=== PATIENT | male | born 1955 | race African-American/Black ===

== ENCOUNTER 2019-07-08 14:54 | Emergency (ER) | payer OTHER ==
[~2019-07-08] VITALS: Ht 188 cm; Wt 120.0 kg
[2019-07-08 15:49] LABS: CLARITY URINE CLEAR (CLEAR); COLOR URINE YELLOW (YELLOW); KETONES URINE NEGATIVE (NEGATIVE); LEUKOCYTE ESTERASE URINE NEGATIVE (NEGATIVE); NITRITE URINE NEGATIVE (NEGATIVE); OCCULT BLOOD URINE TRACE (NEGATIVE); PROTEIN URINE NEGATIVE (NEGATIVE); SPECIFIC GRAVITY URINE 1.015 (1.005-1.030); UROBILINOGEN URINE 0.2 E.U./dL (0.2-1.0)
[2019-07-08 17:10] VITALS: BP 116/74
== END 2019-07-08 17:32 | disposition home or self-care (01) ==
LOC: ER 14:58
DX: R33.9 Retention of urine, unspecified (principal)
CPT/HCPCS: 81003; 99283

== ENCOUNTER 2021-01-25 19:12 | Emergency (ER) | payer SELFPAY ==
[~2021-01-25] VITALS: Ht 185.4 cm; Wt 84.0 kg
[2021-01-25 20:14] VITALS: BP 176/95
[2021-01-25] MEDS ORDERED: MORPHINE SULFATE 4 MG/ML CPJ (NOT FOR IM USE) IV STA (20:50)
[2021-01-25 21:16] LABS: BASOPHILS % 0.4 % (0.0-2.0); EOSINOPHILS % 0.3 % (0.0-5.0); HEMATOCRIT. 49.5 % (42.0-52.0); HEMOGLOBIN. 16.9 g/dL (14.0-18.0); LYMPHOCYTES % 20.4 % (20.0-50.0); MEAN CORPUSCULAR HEMOGLOBIN 30.1 pg (28.0-32.0); MEAN CORPUSCULAR VOLUME 88.1 fL (80.0-94.0); MEAN PLATELET VOLUME 7.1 fl (7.4-10.4); MONOCYTES % 9.4 % (2.0-8.0); NEUTROPHILS % 69.5 % (40.0-76.0); PLATELET 216 x1000/uL (130-400); RED BLOOD CELL COUNT 5.62 mill/uL (4.7-6.1); RED CELL DISTRIBUTION WIDTH 14.1 % (11.6-14.6)
[2021-01-25 21:20] LABS: CHLORIDE 106 mEq/L (98-107); INR 1.1; PROTHROMBIN TIME 11.3 sec (9.6-11.0)
[2021-01-25 21:40] LABS: CLARITY URINE CLEAR (CLEAR); COLOR URINE YELLOW (YELLOW); KETONES URINE NEGATIVE (NEGATIVE); LEUKOCYTE ESTERASE URINE NEGATIVE (NEGATIVE); NITRITE URINE NEGATIVE (NEGATIVE); OCCULT BLOOD URINE NEGATIVE (NEGATIVE); PH URINE 6.5 (4.5-8.0); PROTEIN URINE NEGATIVE (NEGATIVE); SPECIFIC GRAVITY URINE 1.009 (1.005-1.030); UROBILINOGEN URINE 0.2 E.U./dL (0.2-1.0)
== END 2021-01-25 22:10 | disposition left against medical advice (07) ==
LOC: ER 19:12 → CANBEDREQ 22:13
DX: R33.9 Retention of urine, unspecified (principal)
CPT/HCPCS: 36415; 71045; 80053; 81003; 83605; 84145; 84484; 85025; 85610; 87040; 87086; 99284; Z7610; A4315

== ENCOUNTER 2021-08-15 04:30 | Emergency (ER) | payer OTHER ==
[~2021-08-15] VITALS: Ht 185.4 cm; Wt 83.0 kg
[2021-08-15] MEDS: ACETAMINOPHEN WITH CODEINE 300/30MG TABLET PO ONE ×2 (05:26→05:51)
[2021-08-15 06:39] LABS: CLARITY URINE CLEAR (CLEAR); COLOR URINE YELLOW (YELLOW); KETONES URINE TRACE (NEGATIVE); LEUKOCYTE ESTERASE URINE NEGATIVE (NEGATIVE); NITRITE URINE NEGATIVE (NEGATIVE); OCCULT BLOOD URINE NEGATIVE (NEGATIVE); PROTEIN URINE NEGATIVE (NEGATIVE); SPECIFIC GRAVITY URINE 1.016 (1.005-1.030); UROBILINOGEN URINE 0.2 E.U./dL (0.2-1.0)
[2021-08-15] MEDS ORDERED: TOPUD PO (06:57)
[2021-08-15 07:30] VITALS: BP 135/87
== END 2021-08-15 07:32 | disposition home or self-care (01) ==
LOC: ER 04:30
DX: R33.9 Retention of urine, unspecified (principal); R03.0 Elevated blood-pressure reading, without diagnosis of hypertension
CPT/HCPCS: 51702; 81003; 99284

== ENCOUNTER 2022-03-25 06:34 | Emergency (ER) | payer OTHER ==
[~2022-03-25] VITALS: Ht 185.4 cm; Wt 88.3 kg
[~2022-03-25 06:34] MED LIST: TOPUD PO
[2022-03-25 07:15] VITALS: BP 143/93
[2022-03-25 10:33] LABS: CLARITY URINE CLEAR (CLEAR); COLOR URINE YELLOW (YELLOW); KETONES URINE NEGATIVE (NEGATIVE); PROTEIN URINE NEGATIVE (NEGATIVE); SPECIFIC GRAVITY URINE 1.015 (1.005-1.030)
[2022-03-25 10:34] LABS: LEUKOCYTE ESTERASE URINE NEGATIVE (NEGATIVE); NITRITE URINE NEGATIVE (NEGATIVE); OCCULT BLOOD URINE 3+ (NEGATIVE); UROBILINOGEN URINE 0.2 E.U./dL (0.2-1.0)
== END 2022-03-25 11:49 | disposition home or self-care (01) ==
LOC: ER 06:34
DX: N40.1 Benign prostatic hyperplasia with lower urinary tract symptoms (principal); R33.8 Other retention of urine
CPT/HCPCS: 81003; 99283